=== PATIENT | female | born 1955 | race Caucasian/White ===

== ENCOUNTER → 2018-01-23 | Outpatient (CLI) | payer OTHER | LOC: FIMAGING 11:43 | PROVIDERS: ATTEND Orthopaedic Surgery | DX: Z01.818 Encounter for other preprocedural examination (principal); M16.0 Bilateral primary osteoarthritis of hip; M51.36 Other intervertebral disc degeneration, lumbar region; M51.37 Other intervertebral disc degeneration, lumbosacral region; K42.9 Umbilical hernia without obstruction or gangrene; Z78.0 Asymptomatic menopausal state ==

== ENCOUNTER 2018-02-06 09:30 | Inpatient (IN) | payer OTHER ==
--- NOTE | 2018-02-24 11:20 | ASMTCMCOM ---
CM Note CM Note Notes: Received a referral via fax from Dr. Garcia re: Home Health post surgery. Spoke with this patient via phone #[phone] re: post surgery Case Management process/home health referral. Patient is interested in HHC after surgery and states she may be trying a 'non-narcotic' medication regimen. She has never had HHC in the past and would appreciate a recommendation from us. Patient lives in [place] - spoke with Lisette at [facility], they serve the [place] area and also accept [employer] insurance. Will likely send a referral to Lisette at [facility] after patient's surgery. Patient may benefit from RN in addition to PT for medication management. Patient has great support from family as well. CM will follow-up post surgery. Plan: Likely HHC with [facility] Date Signed: 02/24/2018 11:19 AM Electronically Signed By:Madisyn Felton RN
[2018-02-27] MEDS ORDERED: POVIDONE-IODINE 20 ML in SODIUM CL IRRIG SOLUTION 500 ML IRR ONE (06:00)
[2018-02-27] MEDS ORDERED: TRANEXAMIC ACID 1,000 MG in NS 100 ML IV ONE (06:00)
[2018-02-27] MEDS ORDERED: ROPIVACAINE 0.2% 80 MG, EPINEPHrine 0.2 MG, KETOROLAC TROMETHAMINE 30 MG in SYRINGE 0 ML IU ONE (06:00)
[2018-02-27] MEDS ORDERED: ACETAMINOPHEN 325 MG TAB PO ONE (07:43)
[2018-02-27] MEDS ORDERED: FAMOTIDINE 20 MG TAB PO ONE (07:43)
[2018-02-27] MEDS ORDERED: ceFAZolin 2 GM/DEXTROSE 100 ML IV ONE (07:43)
[2018-02-27] MEDS ORDERED: DEXAMETHASONE 4 MG/ML VIAL IVP ONE (07:43)
[2018-02-27] MEDS ORDERED: BUPIVACAINE/EPI 0.5% 30 ML SDV ONE (07:50)
[2018-02-27] MEDS ORDERED: PROPOFOL/EMULSION 500 MG/50 ML BOTTLE IV ONE ×2 (09:05→10:52)
[2018-02-27] MEDS ORDERED: MIDAZOLAM 2 MG/2 ML VIAL IVP ONE (09:14)
--- NOTE | 2018-02-27 09:49 | PDHPUP ---
History & Physical Update H&P update statement: This history and physical update is based on an assessment of the patient which was completed after admission or registration (within 24 hours), but prior to the surgery/procedure. H&P update: H&P reviewed & patient examined, no change in patient's condition since H&P completed
[2018-02-27] MEDS ORDERED: PREGABALIN 150 MG CAP PO ONE (10:15)
--- NOTE | 2018-02-27 10:15 | PDANEPAE ---
ANE History of Present Illness left hip pain ANE Past Medical History - Cardiovascular History Hx Hypertension: No Hx Arrhythmias: No Hx Chest Pain: No Hx Coronary Artery / Peripheral Vascular Disease: No Hx CHF / Valvular Disease: No Hx Palpitations: No Cardiovascular History Comment: had bout of chest pain 2018, was fully worked up at [facility] and was determined it was related to chest wall pain r/t mastecomy and reconstruction. -recent clean cardiac cath 12/20/17 - Pulmonary History Hx COPD: No Hx Asthma/Reactive Airway Disease: No Hx Recent Upper Respiratory Infection: No Hx Oxygen in Use at Home: No Hx Sleep Apnea: No Sleep Apnea Screening Result - Last Documented: Negative - Neurologic History Hx Cerebrovascular Accident: No Hx Seizures: No Hx Dementia: No - Endocrine History Hx Diabetes: No Hypothyroid: No Hyperthyroid: No Obesity: no - Renal History Hx Renal Disorders: No - Liver History Hx Hepatic Disorders: No - Neurological & Psychiatric Hx Hx Neurological and Psychiatric Disorders: Yes Neurological / Psychiatric History Comment: anxiety r/t sudden life changes - Cancer History Hx Cancer: Yes Cancer History Comment: breast cancer - Congenital Disorder History Hx Congenital Disorders: No - GI History GERD: mild Hx Gastrointestinal Disorders: No - Other Health History Other Health History: wears glasses. tinitus. osteoarthritis - Chronic Pain History Chronic Pain: Yes (left hip) - Surgical History Prior Surgeries: C-sections x 3. bilateral mastectomy. breast reconstruction x 2. foot surgery for cyst removal. deviated septum repair. appendectomy ANE Review of Systems Review of Systems: - Exercise capacity Exercise capacity: >=4 METS METS (RN): 4 METS ANE Patient History - Allergies Allergies/Adverse Reactions: Opioids - Morphine Analogues Allergy (Verified 01/16/18 10:02) hypotensive, faint, dizzy, vomitting, lethargic - Home Medications Home medications: home medication list seen and reviewed Home Medications: Herbals/Supplements -Info Only 1 ea PO DAILY 01/15/18 [Last Taken 02/22/18] LORazepam [Ativan (*)] 0.5 mg PO DAILY PRN 01/15/18 [Last Taken 02/13/18] Meclizine HCl [Meclizine HCl 25 mg (RX,OTC)] 25 mg PO HS 01/15/18 [Last Taken ] - NPO status NPO Status: no food or drink >8 hours NPO Since - Liquids (Date): 02/26/18 NPO Since - Liquids (Time): 20:00 NPO Since - Solids (Date): 02/26/18 NPO Since - Solids (Time): 19:30 - Anes Hx Anes Hx: post operative nausea and vomiting - Smoking Hx Smoking Status: Never smoked - Family Anes Hx Family Anes Hx: none Family Hx Anesthesia Complications: none ANE Labs/Vital Signs - Vital Signs Blood Pressure: 132/77 Heart Rate: 49 Respiratory Rate: 16 O2 Sat (%): 90 Height: 165.1 cm Weight: 77.111 kg ANE Physical Exam - Airway Neck exam: FROM Mallampati Score: Class 2 Mouth exam: normal dental/mouth exam - Pulmonary Pulmonary: no respiratory distress - Cardiovascular Cardiovascular: regular rate and rhythym - ASA Status ASA Status: II ANE Anesthesia Plan Anesthesia Plan: spinal
[2018-02-27] MEDS ORDERED: DEXAMETHASONE 4 MG/ML VIAL ONE ×2 (10:41)
[2018-02-27] MEDS ORDERED: fentaNYL 100 MCG/2 ML INJ ONE (10:45)
[2018-02-27] MEDS ORDERED: ONDANSETRON 4 MG/2 ML VIAL ONE (11:00)
[2018-02-27] MEDS ORDERED: LIDOCAINE 2% 5 ML SDV ONE (11:01)
[2018-02-27] MEDS ORDERED: ePHEDrine SULFATE 25 MG/5 ML SYR ONE (11:10)
[2018-02-27] MEDS ORDERED: PHENYLEPHRINE HCL 100 MCG/ML SYR ONE (11:27)
[2018-02-27] MEDS ORDERED: PROPOFOL 200 MG/20 ML VIAL ONE ×2 (12:05→12:45)
[2018-02-27] MEDS ORDERED: ALBUTEROL 3 ML DEYVIAL IH PRN (12:07)
[2018-02-27] MEDS ORDERED: oxyCODONE IR 5 MG TAB PO PRN ×2 (12:07→13:16)
[2018-02-27] MEDS ORDERED: LR 500 ML IV PRN (12:07)
[2018-02-27] MEDS ORDERED: fentaNYL 100 MCG/2 ML INJ IVP PRN (12:07)
[2018-02-27] MEDS ORDERED: MEPERIDINE 25 MG/0.5 ML AMP IVP PRN (12:07)
[2018-02-27] MEDS ORDERED: LABETALOL HCL 20 MG/4 ML INJ IVP PRN (12:07)
[2018-02-27] MEDS ORDERED: ACETAMINOPHEN 500 MG TAB PO PRN (12:07)
[2018-02-27] MEDS ORDERED: METOCLOPRAMIDE 10 MG/2 ML VIAL IVP PRN ×2 (12:07→13:16)
[2018-02-27] MEDS ORDERED: DIAZEPAM 5 MG/ML 1 ML SYR IVP PRN (12:07)
[2018-02-27] MEDS ORDERED: NALOXONE HCL 0.4 MG/ML INJ IVP PRN (12:07)
[2018-02-27] MEDS ORDERED: PHENYLEPHRINE HCL 100 MCG/ML SYR IVP PRN (12:07)
[2018-02-27] MEDS ORDERED: PROMETHAZINE HCL 25 MG/ML INJ IVP PRN ×2 (12:07→13:16)
[2018-02-27] MEDS ORDERED: CYCLOBENZAPRINE 10 MG TAB PO PRN (13:16)
[2018-02-27] MEDS ORDERED: traMADol 50 MG TAB PO PRN (13:16)
[2018-02-27] MEDS ORDERED: PROMETHAZINE HCL 25 MG SUPPR PR PRN (13:16)
[2018-02-27] MEDS ORDERED: ONDANSETRON 4 MG/2 ML VIAL IVP PRN (13:16)
[2018-02-27] MEDS ORDERED: diphenhydrAMINE 25 MG CAP PO PRN (13:16)
[2018-02-27] MEDS ORDERED: ONDANSETRON DISINTEGRATING 4 MG TAB PO PRN (13:16)
[2018-02-27] MEDS ORDERED: TEMAZEPAM 15 MG CAP PO PRN (13:16)
[2018-02-27] MEDS ORDERED: MAGNESIUM HYDROXIDE 30 ML UDCUP PO PRN (13:16)
[2018-02-27] MEDS ORDERED: BISACODYL 10 MG SUPP PR PRN (13:16)
[2018-02-27] MEDS ORDERED: LACTULOSE 20 GM/30 ML UDCUP PO PRN (13:16)
[2018-02-27] MEDS ORDERED: DIPHENOXYLATE/ATROPINE LOMOTIL 1 TAB PO PRN (13:16)
[2018-02-27] MEDS ORDERED: POLYETHYLENE GLYCOL 3350 17 GM PKT PO PRN (13:16)
--- NOTE | 2018-02-27 13:16 | POSTOPPROG ---
Post Op Note Date of Operation: 02/27/18 Surgeon: Domenico Garcia Natural Gas Engineer: GAVIN Rosado Anesthesiologist: MD Sloan Anesthesia: IV Sedation, Spinal Pre-op Diagnosis: Left hip OA Post-op Diagnosis: same Indication: Procedure: Left ant BRINDA with CASSY Inf/Abcess present in the surg proc area at time of surgery?: No EBL: 100-500 (400) Drains: Hemovac
[2018-02-27] MEDS ORDERED: PREGABALIN 75 MG CAP PO PRN (13:19)
[2018-02-27] MEDS ORDERED: LORazepam 0.5 MG TAB PO PRN (13:19)
--- NOTE | 2018-02-27 14:34 | PDMN ---
Medical Necessity Medical necessity: Pt meets inpt criteria per MD order and [facility] S-560, Hip Arthroplasty, inpt only list. 62 y/o w/L hip OA admitted for L ant BRINDA w/ CASSY and post-op care.
--- NOTE | 2018-02-27 14:52 | POSTANESTH ---
Post Anesthetic Evaluation Cardiovascular Status: Normal, Stable Respiratory Status: Normal, Stable Level of Consciousness/Mental Status: Can Participate in Eval Pain Control: Adequate, Prn Tx Ordered Nausea/Vomiting Control: Adequate, Prn Tx Ordered Complications Possibly Related to Anesthesia: None Noted
[2018-02-27] MEDS: LR 1,000 ML IV SCH (15:36)
[2018-02-27] MEDS: ACETAMINOPHEN 325 MG TAB PO SCH ×2 (17:01→23:11)
[2018-02-27] MEDS: ceFAZolin 2 GM/DEXTROSE 100 ML IV SCH (17:55)
[2018-02-27] MEDS: SENNOSIDES/DOCUSATE SODIUM TAB PO SCH (20:49)
[2018-02-27] MEDS: ASPIRIN 81 MG CHEWABLE TAB PO SCH (20:49)
[2018-02-27] MEDS: FAMOTIDINE 20 MG TAB PO SCH (20:49)
[2018-02-27] MEDS ORDERED: MECLIZINE HCL 25 MG TAB PO SCH (21:00)
[2018-02-28] MEDS: ceFAZolin 2 GM/DEXTROSE 100 ML IV SCH (03:48)
[2018-02-28] MEDS: LR 1,000 ML IV SCH (04:02)
[2018-02-28] MEDS: ACETAMINOPHEN 325 MG TAB PO SCH ×2 (05:59→12:00)
[2018-02-28 07:28] VITALS: BP 98/67
--- NOTE | 2018-02-28 07:50 | SOAPPROG ---
VIVIANE Progress Note Assessment/Plan: Assessment: Postop day 1 status post left anterior approach total hip arthroplasty with Ramy Plan: Weight-bearing as tolerated with assistance, PT/OT DVT prophylaxis: SCDs Ryley mckinleyanand aspirin 81 mg twice daily Center spirometry 10 times per hour Analgesia: Celebrex Tylenol muscle relaxants as needed, patient does not tolerate narcotics or opiates Disposition: Home today after physical therapy with outpatient PT 02/28/18 07:46 Subjective: No new pain very well controlled without opiates. Denies fevers chills nausea vomiting chest pain shortness of breath numbness or tingling. Does note a left yip pain that she has had for many months prior to surgery which was attributed to L5 nerve root. This pain is still present. Objective: Vital Signs Temp Pulse Resp BP Pulse Ox 36.7 C 56 L 17 98/67 L 99 02/28/18 07:27 02/28/18 07:27 02/28/18 07:27 02/28/18 07:27 02/28/18 07:27 Laboratory Results 02/28/18 05:14 02/27/18 02/28/18 03/01/18 05:59 05:59 05:59 Intake Total 4150 Output Total 4255 Balance -105 Awake alert and oriented x3 No acute distress Easy nonlabored breathing Left thigh: Moderate swelling, minimal ecchymosis, clean dry intact incisions Drain removed Thigh and calf compartments soft compressible Sensation intact to light touch L4 - S1 Motor intact to EHL FHL tibialis anterior gastrocsoleus Palpable DP PT pulses - Time Spent With Patient Time Spent With Patient: 15 - Pending Discharge Pending Discharge Within 24 Hours: Yes Pending Discharge Date: 02/28/18 Pending Discharge Time: 11:00 ICD10 Worksheet Patient Problems: Problems Problem Status Onset Osteoarthritis of left hip Acute
[2018-02-28] MEDS: ASPIRIN 81 MG CHEWABLE TAB PO SCH (09:33)
[2018-02-28] MEDS: SENNOSIDES/DOCUSATE SODIUM TAB PO SCH (09:33)
[2018-02-28] MEDS: FAMOTIDINE 20 MG TAB PO SCH (09:33)
--- NOTE | 2018-02-28 14:12 | GOP ---
DATE OF OPERATION: 02/27/2018 SURGEON: Domenico Garcia MD DIE BARBER: Shahzad Rosado, CSFA, LSA. Service Station Attendant was required for the procedure due to the comple xity of the case and patient's condition for positioning, prepping, draping, retraction, and closure. ANESTHESIA: Spinal and IV sedation. PREOPERATIVE DIAGNOSIS: Left hip osteoarthritis. POSTOPERATIVE DIAGNOSIS: Left hip osteoarthritis. PROCEDURE PERFORMED: Left anterior approach total hip arthroplasty with MAKOplasty robotic guidance, fluoroscopic supervision greater than 1 hour. FINDINGS: SPECIMENS: Left femoral head. ESTIMATED BLOOD LOSS: 400 cc. INDICATIONS: Patient has severe hip osteoarthritis and dysplasia that failed to improve with conserv ative measures significantly affecting activities of daily living, including walking. The patient el ected to proceed with anterior approach hip replacement using MAKOplasty robotic guidance after exten sive discussion of all possible approaches as well as the risks, benefits, pros, cons, expected recov juan carlos, and prognosis. Patient verbalized understanding the risks and benefits of the procedure and sig radhika informed consent prior to the procedure. DESCRIPTION OF PROCEDURE: Patient was seen in the holding area. Operative consent and extremity wer e signed. Patient was taken to the operating room. After smooth induction of spinal anesthesia and sedation, patient was placed supine position on the operating table with the arch table extension. H ip and contralateral iliac crest were prepped and draped in the usual sterile fashion. Operative sit e was confirmed by signature. Operative time-out performed. Allergies reviewed. Antibiotics and TX A administered. 3 pins were placed in the contralateral iliac crest, and the pelvic array was fixed. It was well visualized by the robot. Desired incision for the anterior approach on the hip was inf iltrated with 0.25% Marcaine with epinephrine. The incision was made with a 10 blade, carried throug h this subcutaneous tissue identifying the TFL fascia. This was incised in line with the incision of the TFL, and the TFL was retracted laterally. Lateral femoral circumflex vessels were coagulated elizabeth Heath. The TFL fascia was incised, and the vastus lateralis was clearly exposed. Pre-capsul ar fat was excised. Each T-shaped capsulotomy was performed. The capsule was preserved for later cl osure. Femoral checkpoint was fixed in the anterior greater trochanter. Express registration was co mpleted. The anterior facet of the gluteus medius attachment was examined and found to be intact wit h moderate tendinosis. Decision was made to proceed without gluteus medius repair. Femoral neck cut was then performed based on pre-templated calculations and imaging. The femoral head was excised wi th a corkscrew. The acetabulum was exposed in standard fashion. The labrum, pulvinar, and soft tiss ue were excised sharply. Pelvic checkpoint was placed the AIIS. Acetabular registration was perform ed using the robot. Reaming was performed using the robot to the desired size. Cup was impacted in place with robotic guidance system. Good fixation was achieved. The cup was irrigated and dried, an d the liner was impacted into place achieving good locking within the cup. The femur was then expose d in standard fashion. The femur was broached to the desired size. Trial neck and head were grain elevator clerk d, and hip was relocated. Length and offset were confirmed using the robot. The position of all com ponents was confirmed at this point fluoroscopically. The foot was freed from the table, and stabili ty was confirmed in 45 degrees in maximal flexion with 30 degrees of internal rotation. The foot was secured back to the table, externally rotated 90 degrees, extended down to the floor, and stability was again confirmed anteriorly. The hip was then dislocated, and the femoral trial components were r emoved, and the stem was impacted into place. The trunnion was cleaned and dried, and the head was i mpacted down onto the trunnion. Wounds were copiously irrigated including the cup with a pulse lavag e, and the hip was once again relocated. Component placement was confirmed with fluoroscopy. All ch eckpoints were removed. Pelvic array was removed. The wound was copiously irrigated with sterile so lution. Dilute Betadine was then irrigated into the wound and allowed to soak for 3 minutes before b eing irrigated out. Joint cocktail was injected in the soft tissue. Capsule and indirect head the r ectus femoris were repaired with #1 Vicryl. The drain was placed exiting distally and laterally from deep to TFL. The wound was then closed in layers with 0 Quill in the TFL fascia, subcutaneous fat, and 3-0 Versalok in the dermis. The wound was dressed with sterile dressings. Patient was safely aw akened and taken to recovery room in stable condition. All critical portions of the procedure perfor med by myself, Dr. Garcia. Operative note was created by myself, and I was immediately available for e mergency cross-coverage at all times. DRAINS: Hemovac x1. COMPLICATIONS: None. IMPLANTS: Trident II Tritanium cluster hole acetabular shell size 52 mm with a 0-degree, 36 mm polye thylene liner; Accolade II size 3 stem, 127 degree offset with a 36 mm +2.5 head. /[id number]/MODL
--- NOTE | 2018-02-28 14:56 | ASMTLACE ---
AAMIR Length of stay for Answers: 2 days current admission Acuity / Level of Answers: Yes Care: Did the patient have an inpatient admission? Comorbidities - select Answers: Opioid dependence all that apply / Chronic pain Other Notes: Hx of breast cancer # of Emergency department Answers: 0 visits in the last 6 months Social determinants Answers: Mental health diagnosis (anxiety, depression, pers onality disorders, etc.) Score: 13 Date Signed: 02/28/2018 02:56 PM Electronically Signed By:RADHA Ku
--- NOTE | 2018-02-28 15:04 | ASMTCMCOM ---
CM Note CM Note Notes: Financial counseling met w pt as now pt has [employer] insurance due to her changing jobs which was not known/communicated when pt scheduled her surgery. [facility] explains [employer] does not cover d/c needs. Pt will have an [place] plan 03/25/2018. No HHC will take [employer], pt would have to private pay for HHC. This was all explained to pt and family but it is confusing because [employer] is still insurance. [facility] was arranged for d/c when pt had [employer] . Lisette with [facility] attempted to meet with pt/ to explain and they said they will just follow up with [facility] for outpatient PT. Pt and have [facility] card. This CM communicated with 's MA and this was a unique situation. Date Signed: 02/28/2018 03:03 PM Electronically Signed By:RADHA Ku
--- NOTE | 2018-03-04 08:51 | GDS ---
ADMISSION DIAGNOSIS: Left hip osteoarthritis. POSTOPERATIVE DIAGNOSIS: Left hip osteoarthritis. NAME OF PROCEDURE: Left anterior approach total hip arthroplasty with MAKOplasty robotic guidance. HOSPITAL COURSE: Patient was admitted on the above date and underwent the above procedure, tolerated it well. She was given DVT and antibiotic prophylaxis while in the hospital. Pain was well control led without narcotics due to her allergy. She participated with physical therapy on postop day 1 and was cleared for discharge home. DISCHARGE INSTRUCTIONS: Provided. Weightbearing as tolerated. DISCHARGE DISPOSITION: Home. CONDITION UPON DISCHARGE: Stable. DEEP VENOUS THROMBOSIS PROPHYLAXIS: 81 mg aspirin b.i.d. for 3 weeks. /[id number]/MODL
== END 2018-02-28 15:36 | disposition home or self-care (01) | DRG 470 ==
LOC: F3N 02-27 07:29 → UNDODISIN 02-28 13:13
PROVIDERS: ADMIT Orthopaedic Surgery; ATTEND Orthopaedic Surgery
DX: M16.12 Unilateral primary osteoarthritis, left hip (principal); E78.00 Pure hypercholesterolemia, unspecified
CPT/HCPCS: 97116-GP; 97161-GP; 97166-GO; 97530-GP; 97535-GO; J0171; J0690; J1100; J1885; J2250; J2370; J2405; J2704; J2795; J3010